=== PATIENT | female | born 1960 | race Caucasian/White ===

== ENCOUNTER 2021-07-15 12:47 | Emergency (ER) | payer OTHER, SELFPAY ==
[2021-07-15 13:25] VITALS: BP 127/70; PULSE 74; RESP 18; TEMP 37; O2SAT 97; BMI 22.8
--- NOTE | 2021-07-15 13:40 | ED.FEMALEGU ---
HPI - Female Genitourinary <Lev Kowalski PA-C - Last Filed: 07/15/21 20:02> General Chief complaint: Urogenital-Female Stated complaint: bladder infection Time Seen by Provider: 07/15/21 13:15 Source: patient Mode of arrival: Ambulatory History of Present Illness HPI Narrative: Patient is a 60-year-old female with a history of cystitis presenting to the emergency department today for evaluation of a suspected bladder infection. Patient states that since this morning she is experience nausea, abdominal pain, and headache. Patient states that the symptoms are similar to the symptoms she has experienced in the past when she has had cystitis. She denies fever, chills, chest pain, cough, shortness of breath, vomiting, diarrhea, dysuria, hematuria, flank pain, or any other concerning symptoms. No further concerns were voiced at this time. Related Data Allergies Allergy/AdvReac Type Severity Reaction Status Date / Time Sulfa (Sulfonamide AdvReac Severe Hives Verified 07/15/21 13:25 Antibiotics) Review of Systems <Lev Kowalski PA-C - Last Filed: 07/15/21 20:02> Constitutional Constitutional: Denies chills, Denies fatigue, Denies fever(s), Denies frequent falls, Reports headache(s), Denies lethargy and Denies weakness Eyes Eyes: Denies loss of vision ENT Ears, Nose, Mouth, and Throat: Denies dizziness, Reports headache(s) and Denies neck pain Cardiovascular Cardiovascular: Denies chest pain, Denies irregular heart rhythm, Denies lightheadedness, Denies palpitations, Denies dyspnea, Denies dyspnea on exertion and Denies orthopnea Respiratory Respiratory: Denies cough, Denies dyspnea, Denies dyspnea on exertion and Denies wheezing Gastrointestinal Gastrointestinal: Reports abdominal pain, Denies change in bowel habits, Denies diarrhea, Reports nausea and Denies vomiting Genitourinary Genitourinary: Denies hematuria, Denies flank pain, Denies urinary incontinence and Denies urinary urgency Musculoskeletal Musculoskeletal: Denies back pain, Denies muscle weakness, Denies neck pain, Denies numbness and Denies tingling Integumentary/Breasts Skin/Breast: Denies pruritus, Denies erythema, Denies rash and Denies wounds Neurologic Neurologic: Denies behavioral changes, Denies confusion, Denies dizziness, Denies frequent falls, Reports headache(s), Denies loss of vision, Denies numbness, Denies tingling and Denies weakness Psychiatric Psychiatric: Denies behavioral changes and Denies confusion Endocrine Endocrine: Denies fatigue and Denies palpitations Allergic/Immunologic Allergic/Immunologic: Denies wheezing Patient History <SEB Gallagher Last Filed: 07/15/21 20:02> alcohol intake frequency: 0-2 drinks per day Alcohol type: wine Substance Use Type: does not use Exam <SEB Gallagher Last Filed: 07/15/21 20:02> Narrative Exam Narrative: GENERAL: 60 year old patient appears stated age. Well-developed patient, in no acute distress. HEAD: Atraumatic. Normocephalic. EYES: Pupils equal round and reactive. Extraocular motions intact. No scleral icterus. No injection or drainage. ENT: Nose without bleeding, purulent drainage. Throat without erythema, tonsillar hypertrophy or exudate. Airway patent. NECK: Trachea midline. Non tender CARDIOVASCULAR: Regular rate and rhythm without murmurs, gallops, or rubs. RESPIRATORY: Clear to auscultation. Breath sounds equal bilaterally. No wheezes, rales, or rhonchi. GASTROINTESTINAL: Abdomen soft, nondistended. Mild tenderness to palpation noted over the right upper quadrant without rebound or guarding. No masses noted throughout the abdomen. No surgical scars appreciated. EXTREMITIES: No edema or joint tenderness. BACK: Nontender without deformity or crepitance. No flank tenderness. NEURO: AOx3. SKIN: No rash or erythema of visible areas Initial Vital Signs Initial Vital Signs: Vital Signs Temperature 98.6 F 07/15/21 13:25 Pulse Rate 74 07/15/21 13:25 Respiratory Rate 18 07/15/21 13:25 Blood Pressure 127/70 07/15/21 13:25 Pulse Oximetry 97 07/15/21 13:25 Course <SEB Gallagher Last Filed: 07/15/21 20:02> Course Course Narrative: Urine dipstick, CBC, CMP, lipase ordered. Urine initially returned negative. COVID antigen test ordered. Orders Ordered: ED Orders 07/15/21 14:00 CBC Auto Diff [Complete Blood Count AUTO DIFF] Stat CMP [Comprehensive Metabolic Panel] Stat Lipase Stat 07/15/21 14:48 COVID19 -Nasal swab/Pre-Proc Stat Vital Signs Vital signs: Vital Signs - 8 hr 07/15/21 13:25 07/15/21 15:48 Temperature 98.6 F Pulse Rate 74 73 Respiratory Rate 18 16 Blood Pressure 127/70 140/82 Pulse Oximetry 97 96 MDM - Female Genitourinary <Lev Kowalski PA-C - Last Filed: 07/15/21 20:02> Lab Data Result diagrams: 07/15/21 14:00 07/15/21 14:00 Labs: Lab Results 07/15/21 07/15/21 07/15/21 Range/Units 14:00 14:00 14:48 WBC 3.8 L (4.5-11.0) X10^3/uL RBC 4.49 (4.0-5.2) X10^6/uL Hgb 14.4 (12.0-16.0) g/dL Hct 41.9 (36-46) % MCV 93.3 (80-100) fL MCH 32.0 (26-34) PG MCHC 34.3 (30-36) % RDW 13.6 (11.6-14.8) % Plt Count 250 (150-400) X10^3/uL Neut % (Auto) 60.5 (50-75) % Lymph % (Auto) 29.1 (25-40) % [place] % (Auto) 7.4 (3-14) % Eos % (Auto) 2.0 (2-4) % Baso % (Auto) 1.0 (0-2) % Neut # (Auto) 2300 (6817-3782) /uL Lymph # (Auto) 1100 (6340-7990) /uL [place] # (Auto) 300 (0-900) /uL Eos # (Auto) 100 (0-450) /uL Baso # (Auto) 0 (0-100) /uL Sodium 141 (137-145) mmol/L Potassium 3.4 (3.4-5.1) mmol/L Chloride 99 (98-107) mmol/L Carbon Dioxide 37 H (22-32) mmol/L BUN 17 (7-17) mg/dL Creatinine 0.83 (0.52-1.04) mg/dL Estimated GFR > 60.0 (>60) mL/min BUN/Creatinine Ratio 20.5 (6-22) Glucose 116 H (80-110) mg/dL Calcium 10.5 H (8.4-10.2) mg/dL Total Bilirubin 0.4 (0.2-1.3) mg/dL AST 31 (14-36) IU/L ALT 14 (<35) IU/L Alkaline Phosphatase 66 (38-126) U/L Total Protein 7.4 (6.3-8.2) g/dL Albumin 4.2 (3.5-5.0) g/dL Globulin 3.2 (1.7-4.1) g/dL Albumin/Globulin Ratio 1.3 (1.0-2.8) Lipase 103 (23-300) U/L SARS-CoV-2 (PCR) Positive H (Negative) Urine Dip Bedside Urine Glucose Negative Bedside Urine Bilirubin - Negative Bedside Urine Ketone - Negative Urine Specific [place] 1.015 Bedside Urine Occult Blood - Negative Bedside Urine pH 7.0 Bedside Urine Protein - Negative Bedside Urine Urobilinogen - Negative Bedside Urine Nitrite - Negative Bedside Urine Leukocytes - Negative Esterase MDM Narrative Medical decision making narrative: To consider cystitis versus pyelonephritis versus gastritis versus viral upper respiratory infection versus COVID-19. Overall physical examination, history, and lab work are reassuring. COVID antigens well performed in the emergency department today did result positive for COVID-19. Results of lab work were discussed with patient and at this time she states she feels comfortable being discharged home. Discussed the possibility of ordering CT of the abdomen, however patient states that she would like to forego the scan. Discussed risks associated with not obtaining CT scan, however patient states that she feels comfortable being discharged home and will return to the emergency department if her symptoms worsen. Strict interim precautions were discussed with the patient prior to discharge. At this time patient is stable for discharge. Discharge Plan Departure Patient Disposition: Home Clinical Impression: COVID-19, Abdominal pain Instructions: DI for COVID-19 (Suspected or Confirmed ) Activity Restrictions/Additional Instructions: *You have been diagnosed with COVID-19, abdominal pain *What to do: *Please continue to take your regular medications as directed. [ ] New medication prescriptions sent to your pharmacy: [ ] [ ] New medication written as a paper prescription [X] No new medications given *Please follow up with your primary care provider in 2-3 days, call for an appointment. Let them know you were seen in the Emergency Department and that we ask that you be seen in follow up. We will electronically transmit a record of today's note if your PCP is in our system *If you do not have a primary care provider please contact the [facility] Resource line at [phone]. They will ask some questions about your medical history and help get you set up with a doctor in the community. *Return to Emergency Department if you should have any new, worsening or concerning symptoms, such as fever greater than 101 F, shaking chills, worsening pain, persistent vomiting or other bothersome symptoms. Referrals: Miscellaneous,Doctor, MD [Primary Care Provider] -
[2021-07-15 14:09] LABS: Add Manual Diff / Slide Review NO; Basophils Absolute Auto 0 /uL (0-100); Eosinophils Absolute Auto 100 /uL (0-450); Hematocrit 41.9 % (36-46); Hemoglobin 14.4 g/dL (12.0-16.0); Lymphocytes Absolute Auto 1100 /uL (1100-4500); Lymphocytes Percent Auto 29.1 % (25-40); Mean Corpuscular HGB Conc 34.3 % (30-36); Mean Corpuscular Volume 93.3 fL (80-100); Monocytes Absolute Auto 300 /uL (0-900); Monocytes Percent Auto 7.4 % (3-14); Neutrophils Absolute Auto 2300 /uL (1500-7000); Neutrophils Percent Auto 60.5 % (50-75); Platelet Count 250 X10^3/uL (150-400); Red Blood Cell Count 4.49 X10^6/uL (4.0-5.2); Red Cell Distribution Width 13.6 % (11.6-14.8); White Blood Cell Count 3.8 X10^3/uL (4.5-11.0)
[2021-07-15 14:25] LABS: Alanine Aminotransferase 14 IU/L (<35); Albumin 4.2 g/dL (3.5-5.0); Albumin Globulin Ratio 1.3 (1.0-2.8); Alkaline Phosphatase 66 U/L (38-126); Aspartate Aminotransferase 31 IU/L (14-36); BUN Creatinine Ratio 20.5 (6-22); Bilirubin Total 0.4 mg/dL (0.2-1.3); Blood Urea Nitrogen 17 mg/dL (7-17); Calcium 10.5 mg/dL (8.4-10.2); Chloride 99 mmol/L (98-107); Estimated Glomerular Filt Rate > 60.0 mL/min (>60); Globulin 3.2 g/dL (1.7-4.1); Glucose 116 mg/dL (80-110); HEMOLYSIS < 15 (0-50); Lipase 103 U/L (23-300); Potassium 3.4 mmol/L (3.4-5.1); Sodium 141 mmol/L (137-145); Total Protein 7.4 g/dL (6.3-8.2)
[2021-07-15 14:31] LABS: Carbon Dioxide 37 mmol/L (22-32)
[2021-07-15 15:22] LABS: COVID19 -Nasal RAPID POSITIVE (Negative)
[2021-07-15 15:48] VITALS: BP 140/82; PULSE 73; RESP 16; O2SAT 96
== END 2021-07-15 15:51 | disposition home or self-care (01) ==
PROVIDERS: Emergency Provider Physician Assistant
DX: U07.1 COVID-19 (principal); R10.11 Right upper quadrant pain
CPT/HCPCS: 36415; 80053; 81003; 83690; 85025; 87635; 99281; 99283; C9803